=== PATIENT | male | born 1975 ===

== ENCOUNTER 2018-10-22 02:44 | Emergency (ER) | payer SELFPAY ==
[~2018-10-22] VITALS: Ht 165.1 cm; Wt 84.0 kg
[2018-10-22 03:13] VITALS: BP 162/84
== END 2018-10-22 03:14 | disposition home or self-care (01) ==
LOC: ER 02:45
DX: I10 Essential (primary) hypertension (principal); F10.99 Alcohol use, unspecified with unspecified alcohol-induced disorder; Y90.9 Presence of alcohol in blood, level not specified
CPT/HCPCS: 99283